=== PATIENT | male | born 1960 | race Hispanic/Latino ===

== ENCOUNTER 2021-11-11 12:44 | Emergency (ER) | payer OTHER, BC ==
[~2021-11-11] VITALS: Ht 162.6 cm; Wt 81.8 kg
[~2021-11-11 12:44] MED LIST: CENTRUM SILVER ULTR1 PO; LOSARTAN/HCT1 TA1 PO
[2021-11-11 12:57] VITALS: BP 142/82
[2021-11-11 13:00] VITALS: BP 131/73
[2021-11-11 13:30] VITALS: BP 121/74
[2021-11-11 14:00] VITALS: BP 138/104
[2021-11-11 14:30] VITALS: BP 124/73
[2021-11-11] MEDS ORDERED: NAPROXEN500 MG PO (14:50)
[2021-11-11 15:01] VITALS: BP 124/73
== END 2021-11-11 15:14 | disposition home or self-care (01) | DRG 563 ==
LOC: ED 12:44
DX: S83.92XA Sprain of unspecified site of left knee, initial encounter (principal); I10 Essential (primary) hypertension; E11.9 Type 2 diabetes mellitus without complications; W17.2XXA Fall into hole, initial encounter; Y92.89 Other specified places as the place of occurrence of the external cause; Y99.0 Civilian activity done for income or pay
CPT/HCPCS: L1830

== ENCOUNTER 2022-06-28 08:48 | Emergency (ER) | payer BC ==
[~2022-06-28] VITALS: Ht 162.6 cm; Wt 81.0 kg
[2022-06-28] VITALS (8 sets, daily range): BP systolic 111–130; BP diastolic 68–81
[~2022-06-28 08:48] MED LIST changes: +NAPROXEN500 MG PO
[2022-06-28] MEDS ORDERED: ROSUVASTATIN CA10 MG PO (09:40)
[2022-06-28] MEDS ORDERED: METFORMIN HCL500 M1 PO (09:40)
[2022-06-28 09:50] LABS: BASO% 0.3 % (0-3); EOS% 2.2 % (0-8); HEMATOCRIT 42.3 % (39.0-50.0); HEMOGLOBIN 14.7 g/dl (14.0-18.0); IMMATURE GRANULOCYTES 0.1 % (0.0-5.0); LYMPH% 16.7 % (15-41); MEAN CELL VOLUME 90.6 fL CALC (80.0-100.0); MEAN CORPUSCULAR HGB 31.5 pG CALC (26.0-32.0); MEAN CORPUSCULAR HGB CONC 34.8 g/dL CAL (32.0-36.0); MONO% 7.6 % (2-13); NEUT# 7.18 thou/uL (1.82-7.42); NEUT% 73.1 % (42-76); RED BLOOD COUNT 4.67 mill/uL (4.70-6.10); RED CELL DISTRI WIDTH 12.9 % (11.5-15.5)
[2022-06-28 09:51] LABS: URINE BILIRUBIN - DIPSTICK NEGATIVE (NEGATIVE); URINE BLOOD DIPSTICK NEGATIVE (NEGATIVE); URINE COLOR YELLOW; URINE GLUCOSE - DIPSTICK 250 mg/dL (NEGATIVE); URINE KETONE NEGATIVE (NEGATIVE); URINE LEUK ESTERASE NEGATIVE (NEGATIVE); URINE PH 5.5 (4.5-8.0); URINE PROTEIN - DIPSTICK NEGATIVE (NEG-TRACE); URINE SPECIFIC GRAVITY 1.025
[2022-06-28 09:58] LABS: URINE NITRITE - DIPSTICK NEGATIVE (Negative)
[2022-06-28 10:03] LABS: ALBUMIN 4.4 g/dL (3.2-5.0); ALKALINE PHOSPHATASE 87 u/l (38-126); ANION GAP 10 (6-22 (CALC)); BILIRUBIN, TOTAL 0.5 mg/dL (0.0-1.4); BUN 15 mg/dL (9-20); BUN/CREATININE RATIO 22 (12-20 (CALC)); CARBON DIOXIDE 23 mmol/l (22-30); CHLORIDE 108 mmol/l (95-108); CREATININE 0.7 mg/dL (0.7-1.3); GFR FOR AFR.AMER. > 60 ML/MIN (>=60 (CALC)); GFR OTHER RACES > 60 ML/MIN (>=60 (CALC)); LIPASE 130 u/l (23-300); POTASSIUM 3.2 mmol/l (3.5-5.1); SGOT/AST 29 u/l (17-59); SODIUM 138 mmol/l (137-146); TOTAL PROTEIN 8.1 g/dL (6.3-8.2)
== END 2022-06-28 11:37 | disposition home or self-care (01) | DRG 392 ==
LOC: ED 08:48
PROVIDERS: Internal Medicine
DX: R10.32 Left lower quadrant pain (principal)
CPT/HCPCS: Q9967

== ENCOUNTER 2023-07-05 06:12 | Day surgery (SDC) | payer OTHER ==
[~2023-07-05] VITALS: Ht 162.6 cm; Wt 81.6 kg
[~2023-07-05 06:12] MED LIST changes: +BAYER ASPIRIN E81 MG PO; +COZAAR100 MG PO; +CRESTOR10 MG PO; +HYDROCHLOROT25 MG PO; +METFORMIN HCL500 M1 PO; +ROSUVASTATIN CA10 MG PO
[2023-07-05] MEDS ORDERED: PERCOCET 5/325M1 TAB PO (09:44)
[2023-07-05 11:09] VITALS: BP 130/79
== END 2023-07-05 11:25 | disposition home or self-care (01) | DRG 352 ==
LOC: ORM 06:12
PROVIDERS: ATTEND Surgery
PROC: 0YU60JZ Supplement Left Inguinal Region with Synthetic Substitute, Open Approach (ICD-10-PCS; principal; 2023-07-05)
DX: K40.30 Unilateral inguinal hernia, with obstruction, without gangrene, not specified as recurrent (principal); I10 Essential (primary) hypertension; E11.9 Type 2 diabetes mellitus without complications; Z79.84 Long term (current) use of oral hypoglycemic drugs
CPT/HCPCS: C9290; J0690; J1100

== ENCOUNTER 2024-05-09 13:05 | Emergency (ER) | payer OTHER ==
[~2024-05-09] VITALS: Ht 162.6 cm; Wt 77.0 kg
[~2024-05-09 13:05] MED LIST changes: +PERCOCET 5/325M1 TAB PO
[2024-05-09 13:44] VITALS: BP 143/82
[2024-05-09] MEDS ORDERED: KEFLEX500 MG PO (13:52)
[2024-05-09] MEDS ORDERED: Diph, Acellular Pertussis, Tet 0.5 ML/VIAL (Tdap) SDV IM ONE (13:55)
== END 2024-05-09 14:07 | disposition home or self-care (01) | DRG 605 ==
LOC: ED 13:05
DX: S61.217A Laceration without foreign body of left little finger without damage to nail, initial encounter (principal); W27.2XXA Contact with scissors, initial encounter; Y92.89 Other specified places as the place of occurrence of the external cause; Y99.0 Civilian activity done for income or pay; I10 Essential (primary) hypertension; E11.9 Type 2 diabetes mellitus without complications; Z79.84 Long term (current) use of oral hypoglycemic drugs